=== PATIENT | female | born 1945 | race Caucasian/White ===

== ENCOUNTER 2018-01-20 16:12 | Inpatient (IN) | payer MEDICARE, MEDICAID ==
[2018-01-20] MEDS ORDERED: NS 0.9% 1000 ML* 1,000 ML IV ONE (16:27)
[2018-01-20] MEDS ORDERED: Levofloxacin 750 MG IVPREMIX(* 750 MG/150 ML BAG IVPB ONE (16:27)
[2018-01-20] MEDS ORDERED: Albuterol/Ipratropium NEB.SOL* Albuterol 2.5 MG/Ipratropium 0.5 MG 3 ML INH ONE ×2 (16:29→18:22)
[2018-01-20] MEDS ORDERED: methylPREDNISolone 125 MG* 2 ML VIAL IV ONE (16:29)
--- NOTE | 2018-01-20 16:50 | ED ---
Respiratory - HPI Summary HPI Summary: A 72 y/o female accompanied by her brought in by ambulance presents to the ED c/o SOB. In the ED room, the patient has a pulse of 96 BPM, O2 saturation of 92% and blood pressure of 145/62. As per triage, "Pt with exac of COPD, recently treated for bronchitis. Today became more dyspneic, reports O2 tank changed by family member 2 days ago but does not believe tank was turned on. Pt responded quickly to nasal O2". According to the patient, a family member (niece) changed her O2 tank today, but did not turn it on. As per nurse, the patient had O2 saturation of 40% before, however, she bounced back up to normal with O2. The patient noted that she felt there was O2 flow. She stated that she was diagnosed with bronchitis more than a month ago, however, she thinks she was without O2 more than a few days but she is not sure. Additional symptoms include fatigue, feeling up/down, cold and weakness. The patient was not given antibiotics for her bronchitis. The patient does have an inhaler which she uses everyday. She is also on O2 every day and use two per day. t was noted that the patient does know how to turn on the O2 tank. SHx of non-smoker for the past 2 years. The patient's stated that she has had no issues lately with him, although since he was out in the [facility], she could have been trouble this morning. She was bringing up a lot of flem. - History of Current Complaint Chief Complaint: EDRespiratoryDistress Stated Complaint: DIFF BREATHING Time Seen by Provider: 01/20/18 16:15 Hx Obtained From: Patient Onset/Duration: Sudden Onset, Lasting Days, Still Present Timing: Constant Current Severity: None Pain Intensity: 0 Character: Cough (Productive), Dyspnea at Rest Sputum Amount: Large Aggravating Factor(s): Nothing Alleviating Factor(s): Oxygen Associated Signs and Symptoms: SOB, Chills - Allergy/Home Medications Allergies/Adverse Reactions: Allergies Allergy/AdvReac Type Severity Reaction Status Date / Time MS Penicillins [Penicillins] Allergy Unknown Unknown Verified 06/17/12 10:56 Reaction Details PMH/Surg Hx/FS Hx/Imm Hx Endocrine/Hematology History: Denies: Hx Diabetes, Hx Thyroid Disease Cardiovascular History: Denies: Hx Hypertension Respiratory History: Reports: Hx Asthma, Hx Chronic Obstructive Pulmonary Disease (COPD) GI History: Denies: Hx Ulcer Musculoskeletal History: Reports: Hx Arthritis Sensory History: Reports: Hx Contacts or Glasses Denies: Hx Hearing Aid Opthamlomology History: Reports: Hx Contacts or Glasses - Cancer History Cancer Type, Location and Year: HIgh cholesterol - Surgical History Surgery Procedure, Year, and Place: Breast Biopsy about 4 years ago Infectious Disease History: No Infectious Disease History: Denies: Hx Hepatitis, Hx Human Immunodeficiency Virus (HIV), Traveled Outside the [place] in Last 30 Days - Family History Known Family History: Negative: Diabetes - Social History Substance Use Type: Reports: None Hx Tobacco Use: Yes Review of Systems Positive: Chills, Fatigue. Negative: Fever Positive: Shortness Of Breath, Cough Positive: Weakness All Other Systems Reviewed And Are Negative: Yes Physical Exam - Summary Physical Exam Summary: Appearance: Well appearing, the patient appears to be in distress Skin: warm, dry, reflects adequate perfusion Head/face: normal Eyes: EOMI, TODD ENT: mucous membranes moist Neck: supple, non-tender Respiratory: breath sounds are diminished, harsh wet cough, labored breathing Cardiovascular: RRR, pulses symmetrical Abdomen: non-tender, soft Bowel Sounds: present Musculoskeletal: normal, strength/ROM intact Neuro: normal, sensory motor intact, A&Ox3 Triage Information Reviewed: Yes Vital Signs On Initial Exam: Initial Vitals Temp Pulse Resp BP Pulse Ox 98.4 F 108 17 145/62 91 01/20/18 16:14 01/20/18 16:14 01/20/18 16:14 01/20/18 16:14 01/20/18 16:14 Vital Signs Reviewed: Yes Diagnostics - Vital Signs Vital Signs Temp Pulse Resp BP Pulse Ox 01/20/18 16:14 98.4 F 108 17 145/62 91 - Laboratory Result Diagrams: 01/20/18 16:44 01/20/18 16:44 Lab Statement: Any lab studies that have been ordered have been reviewed, and results considered in the medical decision making process. - Radiology CXR Radiology Interpretation Completed By: Radiologist - COPD. ED PHYSICIAN REVIEWED THIS RADIOLOGY REPORT. - EKG 1642 Cardiac Rate: NL - 89 BPM EKG Rhythm: Sinus Rhythm - [address] Segment: Normal Summary of EKG Findings: NORMAL INTERVAL AND AXIS. Disposition - Course Course Of Treatment: Patient with significant shortness of breath, hypoxia/ cyanosis in the home with O2 sats in the 40s to 60s initially. May have had nonfunctioning oxygen generator at home. History of significant COPD. Improved significantly here in her mental status is normalizing. Initial PCO2 in the 80s. Continuing on nasal cannula at 3 L. Quiet breath sounds but improving symptomatically with breathing treatments, IV fluids. IV antibiotic was given as well. The patient will be admitted to the hospitalist service for further. - Differential Dx - Cardiopulmonary Differential Diagnoses - Cardiopulmonary: CAD, CHF, Exacerbation Of COPD, Lower Resp Infection - Diagnoses Provider Diagnoses: COPD exacerbation, Hypercapnic respiratory failure - Physician Notifications Discussed Care Of Patient With: Nieves Flores Time Discussed With Above Provider: 17:51 Instructed by Provider To: Other - ACCEPTS PATIENT FOR ADMISSION - Critical Care Time Critical Care Time: 30-74 min - 30 MINUTES. CCT is EXCLUSIVE of separately billable procedures. Discharge - Sign-Out/Discharge Documenting (check all that apply): Patient Departure - ADMIT, Sign-Out Patient - EYAL Signing out patient TO: Nieevs Flores Receiving patient FROM: Enrico Baird - Discharge Plan Condition: Stable Disposition: ADMITTED TO [facility] - Billing Disposition and Condition Condition: STABLE Disposition: Admitted to [facility] - Attestation Statements Document Initiated by Bonifacio: Yes Documenting Scribe: Elvin Minaya Provider For Whom Thanhe is Documenting (Include Credential): Enrico Baird MD Scribe Attestation: Elvin Quiroz scribed for Enrico Baird MD on 01/20/18 at 1942. Scribe Documentation Reviewed: Yes Provider Attestation: The documentation as recorded by the Elvin hope accurately reflects the service I personally performed and the decisions made by , Enrico Baird MD
[2018-01-20 17:08] LABS: ABS Basophils 0 10^3/ul (0-0.2); ABS Eosinophils 0 10^3/ul (0-0.6); ABS Lymphocytes 0.9 10^3/ul (1.0-4.8); ABS Monocytes 0.7 10^3/ul (0-0.8); ABS Nucleated RBC 0 10^3/ul; Eosinophil % 0.4 % (0-6); Hematocrit 39 % (35-47); Hemoglobin 12.4 g/dl (12.0-16.0); Lymphocyte % 12.2 % (25-47); Mean Corpuscular HGB Conc 32 g/dl (31-36); Mean Corpuscular Hemoglobin 31 pg (27-31); Mean Corpuscular Volume 96 fL (80-97); Mean Platelet Volume 7.2 fL (7.4-10.4); Nucleated Red Blood Cells % 0; Platelet Count 377 10^3/ul (150-450); Red Blood Count 4.04 10^6/ul (4.00-5.40); Red Cell Distribution Width 15 % (10.5-15); White Blood Count 7.7 10^3/ul (3.5-10.8)
[2018-01-20 17:18] LABS: INR 1.07 (0.77-1.02)
[2018-01-20 17:27] LABS: EGFR Non-African American 116.6 (>60)
[2018-01-20] MEDS ORDERED: Acetaminophen TAB* 325 MG PO PRN (18:22)
[2018-01-20] MEDS ORDERED: Albuterol 2.5 MG/3 ML NEB.SOL* (0.083%) INH PRN (18:22)
[2018-01-20] MEDS ORDERED: Iohexol 350* (CONTRAST) 500 ML MDV IV ONE (18:45)
[2018-01-20] MEDS ORDERED: Albuterol/Ipratropium NEB.SOL* Albuterol 2.5 MG/Ipratropium 0.5 MG 3 ML INH SCH (19:00)
[2018-01-20] MEDS: Levofloxacin 750 MG IVPREMIX(* 750 MG/150 ML BAG IVPB SCH (20:45)
[2018-01-20] MEDS: methylPREDNISolone 125 MG* 2 ML VIAL IV SCH (20:49)
[2018-01-20] MEDS: Albuterol/Ipratropium NEB.SOL* Albuterol 2.5 MG/Ipratropium 0.5 MG 3 ML INH SCH ×2 (20:55→23:46)
[2018-01-20] MEDS: Mometasone/Formoter 200/5 MDI INH SCH (20:56)
[2018-01-20] MEDS: Atorvastatin* 20 MG TAB PO SCH (21:12)
[2018-01-20] MEDS: Heparin VIAL(*) 5000 UNITS/ML VIAL (FIVE THOUSAND) SUBCUT SCH (21:13)
--- NOTE | 2018-01-20 23:08 | HP ---
CC: Dr. De Leon * HISTORY AND PHYSICAL: DATE OF ADMISSION: 01/20/18 PRIMARY CARE PROVIDER: Dr. Azul De Leon. MY ATTENDING PHYSICIAN WHILE IN THE HOSPITAL: Dr. Nieves Flores * (report dictated by Tej Rivera NP) CHIEF COMPLAINT: 1. Cough. 2. Shortness of breath. 3. Syncope. HISTORY OF PRESENT ILLNESS: Ms. Silva is a 72-year-old female patient with a significant history of depression; COPD, on 2 L chronically; hyperlipidemia; history of stroke in the past; history of tobacco abuse, who comes into our ER today stating that last 2 days, she has had progressively worsening cough, shortness of breath. She has had increased sputum production, in addition to this change in her sputum characteristics in a sense that that it has turned to a greenish-type thick sputum. She has noticed that she is progressively becoming more short of breath, particularly with minimal exertion; however, today she was sitting down, she was in her room and the next thing she knew, she woke up and she had a large amount of green sputum and mucus in her hand. She also was incontinent of bowel and bladder. She denies any recent fevers. She does admit to having chills intermittently. When she came to, she did not know where she was, but she knew that her niece was helping her and she knew that her niece had called 911. She does not know how long she was out for. She does not report any abdominal pain. There has been no chest pain prior to or after. She just felt lightheaded. It was noted that when EMS responded there, her oxygen level was 40% and there was question whether or not her O2 was being delivered appropriately, the tank may have been shut off unbeknownst to her. The patient came into the ED. It was noted that she appeared to be hypoxic, she was noted to have decreased breath sounds. There was concern for COPD exacerbation. She was hypoxic here. She was initially tachycardic and she also was initially tachypneic. Because of these findings, we were asked to evaluate for admission. PAST MEDICAL HISTORY: Significant for: 1. Depression. 2. COPD, chronically on 2 L. 3. Hyperlipidemia. 4. Tobacco abuse. 5. CVA. PAST SURGICAL HISTORY: She sounds like she has had a laparotomy. She is unsure if she had it and why that was done. MEDICATIONS: Home meds include, this was according to Kevin. We will need to confirm this with her PCP tomorrow. 1. Zocor 40 mg at bedtime. 2. DuoNeb 3 cc inhaled four times a day. 3. Combivent 1 puff inhaled b.i.d. as needed. 4. Oxybutynin 10 mg p.o. daily. 5. Prilosec 20 mg p.o. daily. 6. Aspirin 81 mg daily. 7. Zoloft 75 mg daily. ALLERGIES TO MEDICATIONS: Include PENICILLIN and CECLOR. FAMILY HISTORY: Her mother had a history of stomach cancer. Father had a history of colon cancer. SOCIAL HISTORY: She was a pack-a-day smoker since the age of 12, she quit about 3 years ago. Does not drink alcohol. Surrogate decision maker is her . REVIEW OF SYSTEMS: There is no documented fever. She denies having any significant weight change. There is no double vision. She denies having any ear discharge. There was no rhinorrhea, no sore throat, no thyroid enlargement. She denies having any chest pain. There is shortness of breath with exertion, but no orthopnea, no nocturnal dyspnea. No abdominal pain. There was no nausea, there is no vomiting. No dysuria, no frequency. There was loss of consciousness, question of seizure. No pruritus. Review of 14 systems was completed, all others negative. PHYSICAL EXAMINATION GENERAL: At this time, Ms. Silva is a 72-year-old female patient. She does appear to be cachectic. She appears to be chronically ill-appearing. She does not appear to be in any acute distress. VITAL SIGNS: Blood pressure 136/63 with a pulse of 98, respirations 20, O2 sat 90%, temperature 98.4. HEENT: Head: Atraumatic and normocephalic. Eyes: EOMs intact. Sclerae anicteric and not pale. Throat: Oral mucosa appears to be dry. No oropharyngeal erythema. NECK: Supple. LUNGS: Diminished throughout. She did have some wheezing and rhonchi in the right upper lobe. She had equal diaphragmatic expansion. HEART: Sounds S1, S2. Regular rate and rhythm. She had no murmurs, rubs, or gallops. ABDOMEN: Soft, flat, nontender. Bowel sounds were present. EXTREMITIES: Pulses were 2+ throughout. No peripheral edema. Moving all 4 extremities with 5/5 strength. NEUROLOGIC: She is awake, she is alert, she is oriented x3. Tongue midline. Software Engineer were equal. She had no gross focal deficits. SKIN: Grossly intact. DIAGNOSTIC STUDIES/LAB DATA: WBC 7.7, RBC of 4.04, hemoglobin 12.4, hematocrit of 39, platelet count 377. INR 1.07. Blood gas: pH 7.38, PCO2 86, PO2 54, bicarb of 41. Sodium was 141, potassium 4.0, chloride of 93, bicarb 47 , BUN 11, creatinine of 0.52, glucose 100, lactate 0.8, calcium 9.7. Total bili 0.4, AST 14, ALT 10, alk phos 101. Troponin 0.03. CRP 167. BNP of 99. Albumin of 3.4. She did have a chest x-ray obtained today, impression: COPD. She did have an EKG obtained today showing a normal sinus rhythm, J-point elevation in V2, V3. She had no ST elevations or T-wave inversions. Reviewed it to the previous EKG, the J-point elevation is new. Last EKG was over 5 years ago. She had diffuse T-wave flattening with the previous EKGs. Old medical records were reviewed. ASSESSMENT AND PLAN: Ms. Silva is a 72-year-old female patient coming into the ED today with complaints of shortness of breath, cough, possible syncope. We were asked to evaluate for admission. She will be admitted under inpatient status for: 1. Chronic obstructive pulmonary disease exacerbation. At this point, again the patient is noted to be hypoxic, she is also noted to be mildly tachypneic. She is requiring a fair amount of O2. I will go ahead and place her in the ICU under Vapotherm. I will place her on nebs every 4 hours p.r.n. albuterol. I will also order Solu-Medrol 60 q.8. I have ordered Levaquin. We will check legionella antigen, Strep pneumo antigen. Sputum cultures will be sent. We will order MetaNeb as well to allow for aggressive pulmonary toileting. I will place her in the ICU and continue to follow. Because of the hypoxia, I will certainly go ahead and check a CTA of the chest just to rule out pulmonary embolism and because of a syncopal episode and we will continue to follow. 2. Syncope. I suspect this is probably secondary to hypoxia. She may have had a seizure related to hypoxia, but she did not have a real prolonged postictal phase, but I do think that I will get an EEG. I have ordered a CT of the brain as well for the syncope and possible seizure and we will continue to follow her. She will be placed on telemetry. I will cycle her troponins. 3. Depression. Continue with supportive care. 4. History of cerebrovascular accident. Continue with secondary prevention. 5. Hyperlipidemia. Continue with statin therapy. 6. DVT prophylaxis. She will be placed on heparin subcu. 7. Code status. She wished to be a DNR/DNI. MOLST form has been filled out. 8. Fluids, electrolytes, and nutrition. She can have a regular diet. TIME SPENT: On admission was 60 minutes, greater than half of the time was spent [id number] with the patient obtaining my history and physical, other half of the time was spent going over the plan of care with the patient and implementing plan of care. I did discuss the plan of care with my attending, Dr. Flores; she is in agreement. TEJ RIVERA NP [id number]/[facility] #: [id number] GENE
[2018-01-21] MEDS: Albuterol/Ipratropium NEB.SOL* Albuterol 2.5 MG/Ipratropium 0.5 MG 3 ML INH SCH ×2 (00:51→08:46)
[2018-01-21] MEDS: methylPREDNISolone 125 MG* 2 ML VIAL IV SCH ×3 (04:33→20:14)
[2018-01-21] MEDS: Heparin VIAL(*) 5000 UNITS/ML VIAL (FIVE THOUSAND) SUBCUT SCH ×3 (05:15→20:14)
[2018-01-21 05:33] LABS: INR 1.08 (0.77-1.02)
[2018-01-21 05:34] LABS: ABS Basophils 0 10^3/ul (0-0.2); ABS Eosinophils 0 10^3/ul (0-0.6); ABS Lymphocytes 0.4 10^3/ul (1.0-4.8); ABS Monocytes 0.1 10^3/ul (0-0.8); ABS Neutrophils 5.9 10^3/ul (1.5-7.7); ABS Nucleated RBC 0 10^3/ul; Eosinophil % 0 % (0-6); Hematocrit 36 % (35-47); Hemoglobin 11.5 g/dl (12.0-16.0); Lymphocyte % 6.3 % (25-47); Mean Corpuscular HGB Conc 32 g/dl (31-36); Mean Corpuscular Hemoglobin 31 pg (27-31); Mean Corpuscular Volume 96 fL (80-97); Mean Platelet Volume 7.2 fL (7.4-10.4); Nucleated Red Blood Cells % 0.1; Platelet Count 353 10^3/ul (150-450); Red Blood Count 3.72 10^6/ul (4.00-5.40); Red Cell Distribution Width 14 % (10.5-15); White Blood Count 6.5 10^3/ul (3.5-10.8)
[2018-01-21 05:41] LABS: EGFR Non-African American 127.9 (>60)
--- NOTE | 2018-01-21 07:35 | PN ---
Subjective Date of Service: 01/21/18 Interval History: Ms. Silva reports that she is feeling better today but that she is not back to her baseline. She denies chest pain but is short of breath with exertion. She denies nausea or abdominal pain. Objective Active Medications: Acetaminophen (Tylenol Tab*) 650 mg PO Q4H PRN Albuterol (Ventolin 2.5 Mg/3 Ml Neb.Mecca*) 2.5 mg INH Q2H PRN Albuterol/Ipratropium (Duoneb (Albuterol 2.5 Mg/Ipratropium 0.5 Mg)) 1 neb INH RT.[id number] AWAKE JOSE Aspirin (Aspirin Ec Tab*) 81 mg PO DAILY JOSE Atorvastatin Calcium (Lipitor*) 20 mg PO BEDTIME JOSE Heparin Sodium (Porcine) (Heparin Vial(*)) 5,000 units SUBCUT Q8HR JOSE Levofloxacin/Dextrose (Levaquin 750 Mg Ivpremix(*)) 750 mg in 150 mls @ 100 mls /hr IVPB Q24H JOSE Methylprednisolone Sodium Succinate (Solu-Medrol 125mg *) 60 mg IV Q8H JOSE Mometasone Furoate/Formoterol Fumar (Dulera 200/5 Mdi*) 2 puff INH BID JOSE Omeprazole (Prilosec Cap*) 20 mg PO DAILY JOSE Oxybutynin Chloride (Ditropan Tab*) 10 mg PO DAILY JOSE Sertraline HCl (Zoloft*) 75 mg PO DAILY [facility] Vital Signs: Temp Pulse Resp BP Pulse Ox 98.2 F 79 24 120/49 96 01/21/18 04:00 01/21/18 06:01 01/21/18 06:01 01/21/18 06:01 01/21/18 06:01 Oxygen Devices in Use Now: Nasal Cannula Appearance: Female lying in bed in NAD Eyes: No Scleral Icterus Ears/Nose/Mouth/Throat: Mucous Membranes Moist Neck: Trachea Midline Respiratory: Symmetrical Chest Expansion and Respiratory Effort, Clear to Auscultation, - - Diminished throughout Cardiovascular: NL Sounds; No Murmurs; No JVD, No Edema Abdominal: NL Sounds; No Tenderness; No Distention Extremities: No Edema Skin: No Rash or Ulcers Neurological: Alert and Oriented x 3, NL Muscle Strength and Tone Result Diagrams: 01/21/18 05:10 01/21/18 05:10 Assess/Plan/Problems-Billing Assessment: Ms. Silva is a 72 yo F with a PMH of COPD with chronic hypoxic respiratory failure on 2L NC at home who was admitted on 01/20/18 with a COPD exacerbation and acute on chronic hypoxemic respiratory failure. - Patient Problems (1) Acute on chronic respiratory failure with hypoxemia Comment: - Now on 5l NC, improving slowly - Continue tx for pna and COPD exacerbation. (2) Pneumonia Comment: - CT chest with ill-defined opacities consistent with pneumonia. - Continue levaquin, tx for COPD exacerbation as per above. (3) COPD exacerbation Comment: - Continue solumedrol, duonebs. (4) Hyperlipidemia Comment: - Continue atorvastatin. (5) Depression Comment: - Continue sertraline. (6) DVT prophylaxis Comment: - Heparin Sq. (7) DNR (do not resuscitate) Comment: Status and Disposition: Inpatient with critical illness, improving slowly. Transfer from ICU to medical floor. Anticipate discharge to home when medically stable.
[2018-01-21] MEDS: Aspirin EC TAB* 81 MG TAB.EC PO SCH (08:21)
[2018-01-21] MEDS: Omeprazole CAP* 20 MG PO SCH (08:21)
[2018-01-21] MEDS: Sertraline* 25 MG TAB PO SCH (08:21)
[2018-01-21] MEDS: Oxybutynin TAB* 5 MG PO SCH (08:22)
[2018-01-21] MEDS: Mometasone/Formoter 200/5 MDI INH SCH ×2 (08:49→20:31)
--- NOTE | 2018-01-21 10:04 | ECHO ---
Patient: RUDDY VIVEROS [facility] Rec#: [id number] : 1945 Date: 01/21/2018 Age: 72y Height: 160 cm / 63.0 in Weight: 64 kg / 141.1 lbs Sex: F BSA: 1.67 Room#: ICU 1 Admit Date#: 01/20/2018 Type: Inpatient Referring: Tej Rivera NP Reading: Cyndi Hightower MD Concrete Boom Operator: Geovanna Marin RDCS,RDMS CC: Azul De Leon MD Transthoracic Echocardiogram Indication: Syncope BP: 120/49 HR: 78 Rhythm: NSR Findings History: COPD, anasarca, cor pulmonale, CVA, HLD. Technical Comments: The study quality is fair. The study is technically limited due to the patient's history of COPD. Left Ventricle: The left ventricular chamber size is normal. Mild concentric left ventricular hypertrophy is observed. Global left ventricular wall motion and contractility are within normal limits. The estimated ejection fraction is 60-65%. There is no consistent Doppler evidence of clinically significant diastolic dysfunction. Left Atrium: The left atrial chamber size is normal. Right Ventricle: The right ventricular chamber size and systolic function are within normal limits. The right ventricle wall thickness is mildly increased. Right Atrium: The right atrial cavity size is normal. Aortic Valve: The aortic valve structure is not well visualized. The aortic valve leaflets are mildly thickened. There is no evidence of aortic regurgitation. There is no evidence of aortic stenosis. Mitral Valve: There is mitral annular calcification. The mitral valve leaflets are mildly thickened. Mitral valve leaflet mobility appears normal. There is a trace of mitral regurgitation. There is no evidence of mitral stenosis. Tricuspid Valve: The tricuspid valve leaflets are normal. There is no evidence of tricuspid valve regurgitation. Pulmonic Valve: The pulmonic valve structure is not well visualized. There is no evidence of pulmonic regurgitation. Pericardium: There is no significant pericardial effusion. Aorta: The ascending aorta is not well visualized. The aortic arch is not well visualized. The aortic root is normal in size. Pulmonary Artery: The main pulmonary artery is not well visualized. Venous: The inferior vena cava appears normal in size. There is an approximate 50% respiratory change in the inferior vena cava dimension. Conclusions The study quality is fair. Mild concentric left ventricular hypertrophy is observed. Global left ventricular wall motion and contractility are within normal limits. The estimated ejection fraction is 60-65%. The right ventricle wall thickness is mildly increased. The right ventricular chamber size and systolic function are within normal limits. The aortic valve leaflets are mildly thickened with normal function. There is mitral annular calcification and trace of mitral regurgitation. Compared with prior echo report of 02/03/13, LVH is new, no longer see septal flattening of the ventricals, LVEF is stable, RV no longer dilated, RVH new, RV systolic function previously mildly reduced. MV function is unchanged. Resolution of prior mil.d/moderate TR. Unable to compare PA pressure, previously 64 mmHg. Measurements Name Value Normal Range RVIDd (AP) 2D 1.7 cm (0.9 - 2.6) RAd ISD 4CH 4.1 cm (3.4 - 4.9) RA (A4C)W 3.5 cm (2.9 - 4.6) IVSd (2D) 1 cm (0.6 - 1) LVPWd (2D) 1.1 cm (0.6 - 1) LVIDd (2D) 4 cm (3.6 - 5.4) LVIDs (2D) 2.6 cm - LV FS (2D) 36 % (25 - 45) Aortic Annulus 2.1 cm (1.4 - 2.6) Ao root diameter (2D) 2.3 cm (2.1 - 3.5) LA dimension (AP) 2D 3.2 cm (2.3 - 3.8) LAd ISD 4CH 4.6 cm (2.9 - 5.3) LA ISD 4CH W 3.9 cm (2.5 - 4.5) Name Value Normal Range LA ESV BP (A/L) index 19 ml/m2 - Name Value Normal Range MV E-wave Vmax 0.9 m/sec - MV deceleration time 148 msec - MV A-wave Vmax 1.2 m/sec - MV E:A ratio 0.8 ratio - LV septal e' Vmax 0.07 m/sec - LV lateral e' Vmax 0.08 m/sec - LV E:e' septal ratio 14.5 ratio - LV E:e' lateral ratio 12 ratio - Name Value Normal Range AV Vmax 1.5 m/sec - AV VTI 30 cm - AV peak gradient 9 mmHg - AV mean gradient 4 mmHg - LVOT Vmax 0.9 m/sec - LVOT VTI 17 cm - LVOT peak gradient 3.2 mmHg - LVOT mean gradient 1 mmHg - Name Value Normal Range MV Vmax 1.2 m/sec - MV VTI 33 cm - MV peak gradient 6 mmHg - MV mean gradient 3 mmHg - MV PHT 99 msec - MVA (PHT) 2.2 cm2 - Name Value Normal Range RAP 8 mmHg - IVC diameter 1.9 cm - Name Value Normal Range PV Vmax 0.8 m/sec - PV peak gradient 2.6 mmHg -
[2018-01-21] MEDS: Atorvastatin* 20 MG TAB PO SCH (20:14)
[2018-01-21] MEDS: Levofloxacin 750 MG IVPREMIX(* 750 MG/150 ML BAG IVPB SCH (20:15)
[2018-01-22] MEDS: methylPREDNISolone 125 MG* 2 ML VIAL IV SCH ×3 (03:30→17:19)
[2018-01-22] MEDS: Heparin VIAL(*) 5000 UNITS/ML VIAL (FIVE THOUSAND) SUBCUT SCH ×2 (05:36→13:05)
--- NOTE | 2018-01-22 06:26 | EEG ---
ELECTROENCEPHALOGRAPHY: DATE OF STUDY: 01/21/18 LOCATION: She is an inpatient in room 418. REFERRING PROVIDER: Tej Rivera NP CLINICAL PROBLEM: Episode of loss of consciousness and the patient was subsequently found to be hypo xic. There is a history of COPD. MEDICATIONS: Include: 1. Levaquin. 2. Solu-Medrol. 3. Sertraline. REPORT: This 16-channel EEG is remarkable for background rhythms consisting of bitemporalis muscle a rtifact. Central and bitemporal activity is noted and is roughly in the 6 to 7 cycles per second ran ge. There are some central and bifrontal beta rhythms as well. There is intermittent eye movement a rtifact. There is intermittent blink artifact. There is chewing artifact as well. Portions of the t racing are quite readable, however. The patient does not appear to drowse or sleep during the record ing. Activation procedures are not attempted. There are no clinical events described. CLINICAL IMPRESSION: Abnormal EEG due to mild slowing of background rhythm consistent with diffuse c erebral dysfunction. There are no focal or epileptiform features to this recording. [id number]/[facility] #: [id number]
--- NOTE | 2018-01-22 08:13 | PN ---
Subjective Date of Service: 01/22/18 Interval History: Ms. Silva reports feeling much better today. She has been up ambulating and now requiring 3L NC to maintain an SpO2 > 92%. She denies chest pain, nausea, or abdominal pain and is tolerating oral intake well. Objective Active Medications: Acetaminophen (Tylenol Tab*) 650 mg PO Q4H PRN Albuterol (Ventolin 2.5 Mg/3 Ml Neb.Mecca*) 2.5 mg INH Q2H PRN Aspirin (Aspirin Ec Tab*) 81 mg PO DAILY JOSE Atorvastatin Calcium (Lipitor*) 20 mg PO BEDTIME JOSE Heparin Sodium (Porcine) (Heparin Vial(*)) 5,000 units SUBCUT Q8HR JOSE Levofloxacin/Dextrose (Levaquin 750 Mg Ivpremix(*)) 750 mg in 150 mls @ 100 mls /hr IVPB Q24H JOSE Methylprednisolone Sodium Succinate (Solu-Medrol 125mg *) 60 mg IV Q8H JOSE Mometasone Furoate/Formoterol Fumar (Dulera 200/5 Mdi*) 2 puff INH BID JOSE Omeprazole (Prilosec Cap*) 20 mg PO DAILY JOSE Oxybutynin Chloride (Ditropan Tab*) 10 mg PO DAILY JOSE Sertraline HCl (Zoloft*) 75 mg PO DAILY [facility] Oxygen Devices in Use Now: Nasal Cannula Appearance: Female sitting up in bed in NAD Eyes: No Scleral Icterus Ears/Nose/Mouth/Throat: Mucous Membranes Moist Neck: Trachea Midline Respiratory: Symmetrical Chest Expansion and Respiratory Effort, Clear to Auscultation, - - Diminished Cardiovascular: NL Sounds; No Murmurs; No JVD, No Edema Abdominal: NL Sounds; No Tenderness; No Distention Extremities: No Edema Skin: No Rash or Ulcers Neurological: Alert and Oriented x 3, NL Muscle Strength and Tone Nutrition: Taking PO's Result Diagrams: 01/21/18 05:10 01/21/18 05:10 Assess/Plan/Problems-Billing Assessment: Ms. Silva is a 72 yo F with a PMH of COPD with chronic hypoxic respiratory failure on 2L NC at home who was admitted on 01/20/18 with a COPD exacerbation and acute on chronic hypoxemic respiratory failure. - Patient Problems (1) Acute on chronic respiratory failure with hypoxemia Comment: - Now down to 3l NC with ambulation, 2L at rest - Continue tx for pna and COPD exacerbation. (2) Pneumonia Comment: - CT chest with ill-defined opacities consistent with pneumonia. - Continue levaquin po, tx for COPD exacerbation as per above. (3) COPD exacerbation Comment: - Start prednisone taper. (4) Hyperlipidemia Comment: - Continue atorvastatin. (5) Depression Comment: - Continue sertraline. (6) DVT prophylaxis Comment: - Heparin Sq. (7) DNR (do not resuscitate) Comment: Status and Disposition: Inpatient, discharge to home.
[2018-01-22] MEDS: Oxybutynin TAB* 5 MG PO SCH (08:17)
[2018-01-22] MEDS: Aspirin EC TAB* 81 MG TAB.EC PO SCH (08:17)
[2018-01-22] MEDS: Sertraline* 25 MG TAB PO SCH (08:17)
[2018-01-22] MEDS: Omeprazole CAP* 20 MG PO SCH (08:17)
[2018-01-22] MEDS: Mometasone/Formoter 200/5 MDI INH SCH (08:23)
[2018-01-22 15:16] VITALS: BP 110/45
--- NOTE | 2018-01-22 21:32 | DS ---
CC: Dr. Olvera* [facility] MEDICINE DISCHARGE SUMMARY: DATE OF ADMISSION: 01/20/18 DATE OF DISCHARGE: 01/22/18 PRIMARY CARE PHYSICIAN: Dr. Olvera. ATTENDING PHYSICIAN: Dr. Ever Gallardo* (dictation provided by Melanie Razo NP). PRIMARY DIAGNOSES: 1. Acute on chronic respiratory failure with hypoxemia. 2. Pneumonia. 3. Chronic obstructive pulmonary disease exacerbation. SECONDARY DIAGNOSES: 1. Hyperlipidemia. 2. Depression. 3. Chronic obstructive pulmonary disease, chronically on 2 L nasal cannula. 4. Tobacco abuse. 5. History of cerebrovascular accident. MEDICATIONS AT THE TIME OF DISCHARGE: 1. Simvastatin 40 mg p.o. at bedtime. 2. Ipratropium nebulizer 3 mL inhaled four times a day. 3. Combivent inhaler 1 puff inhaled b.i.d. p.r.n. 4. Oxybutynin 10 mg p.o. daily. 5. Omeprazole 20 mg p.o. daily. 6. Aspirin 81 mg p.o. daily. 7. Sertraline 75 mg p.o. daily. 8. Prednisone 40 mg to taper. 9. Levaquin 750 mg p.o. daily x5 days. HOSPITAL COURSE: Ms. Silva is a 72-year-old female, who presented to the emergency room on 01/20/18 with concern for shortness of breath. Please see the dictated H and P from Tej Rivera NP, for complete details. In brief, the patient has a history of COPD, presented to the emergency room with worsening cough and shortness of breath. She reported increased sputum production and that sputum had changed to a greenish thick sputum. In the emergency room, she was initially confused, but became more oriented during her time there. There were some concerns that perhaps her oxygen was not functioning properly at home per EMS. In the emergency room, she had no leukocytosis. Her pH 7.38, PCO2 86, PO2 of 54. She had CRP 167.53. She is afebrile. She went on for a chest CTA, which showed no pulmonary embolism. It did show ill-defined multilobar lung opacities likely representing pneumonia, less pronounced in the right upper lobe with reactive hilar and mediastinal lymph nodes. There is also 4-mm left lower lobe nodule, possibly related to underlying airspace disease, but other etiologies could not be excluded and there is a recommended followup CT in 1 year. Ms. Silva is admitted to the hospital. She was treated with Levaquin and Solu- Medrol for her pneumonia and COPD exacerbation. By the following day, she was doing better, but continued to require 5 L of oxygen at rest. Today, Ms. Silva is doing much better. She is on 2 L nasal cannula, which is her home O2 at rest and is only meeting 3 L with mobility. She states she is feeling much better. Her lungs are much clear. Her vitals are stable and her labs have remained stable. Ms. Silva is medically stable for discharge to home. She will be continuing to complete a course of prednisone and Levaquin in treatment of COPD and pneumonia and she has been recommended closely to follow up with Dr. Olvera. DISPOSITION: To home. DIET: Regular. ACTIVITIES: As tolerated. FOLLOWUP PLANS: 1. Please follow up with Dr. Olvera in the next week regarding this hospitalization. 2. Please follow up with Dr. Olvera for repeat CT to evaluate abnormalities noted here have cleared. TIME SPENT: Approximately 60 minutes was spent on the discharge of this patient , more than half the time was spent with her at the bedside reviewing the events leading up to this hospitalization, performing the physical examination, and reviewing my plan of care. MELANIE RAZO NP [id number]/[facility] #: [id number] GENE
[2018-01-23] MEDS: Mometasone/Formoter 200/5 MDI INH SCH (06:48)
== END 2018-01-23 07:23 | disposition home health service (06) | DRG 193 ==
LOC: ED 16:12 → ICU 18:18 → MED 01-21 11:31
PROVIDERS: ADMIT Internal Medicine; ATTEND Student in an Organized Health Care Education/Training Program
PROC: 4A00X4Z Measurement of Central Nervous Electrical Activity, External Approach (ICD-10-PCS; principal; 2018-01-21)
DX: J18.9 Pneumonia, unspecified organism (principal); J96.21 Acute and chronic respiratory failure with hypoxia; J44.1 Chronic obstructive pulmonary disease with (acute) exacerbation; J44.0 Chronic obstructive pulmonary disease with (acute) lower respiratory infection; R64 Cachexia; Z68.1 Body mass index [BMI] 19.9 or less, adult; F32.9 Major depressive disorder, single episode, unspecified; Z66 Do not resuscitate; F17.210 Nicotine dependence, cigarettes, uncomplicated; M19.90 Unspecified osteoarthritis, unspecified site; R91.1 Solitary pulmonary nodule; E78.5 Hyperlipidemia, unspecified; Z86.73 Personal history of transient ischemic attack (TIA), and cerebral infarction without residual deficits; Z99.81 Dependence on supplemental oxygen; Z88.0 Allergy status to penicillin; Z88.8 Allergy status to other drugs, medicaments and biological substances; Z80.0 Family history of malignant neoplasm of digestive organs; Z79.82 Long term (current) use of aspirin; Z79.52 Long term (current) use of systemic steroids
CPT/HCPCS: 36415; 70450; 71045; 71275; 80048; 80053; 82803; 83605; 83880; 84484; 85025; 85610; 86140; 87040; 87070; 87077; 87205; 87641; 87899; 93005; 93306; 94640; 94668; 95816; 99283; A9270-GY; J1644; J2930; Q9967

== ENCOUNTER 2018-02-15 00:06 | Inpatient (IN) | payer MEDICARE, MEDICAID ==
[2018-02-15] MEDS ORDERED: NS 0.9% 1000 ML*IV.FLUID IV ONE (00:12)
[2018-02-15] MEDS ORDERED: Levofloxacin 750 MG IVPREMIX(* 750 MG/150 ML BAG IVPB ONE (00:15)
[2018-02-15] MEDS ORDERED: Aztreonam (*) 2 GM in NS 0.9% 50 ML* 50 ML IVPB ONE (00:15)
[2018-02-15] MEDS ORDERED: methylPREDNISolone 125 MG* 2 ML VIAL IV ONE (00:15)
[2018-02-15] MEDS ORDERED: Albuterol 0.5% CONC NEB.SOL* 5 MG/ML 20 ml BOT ONE (00:19)
--- NOTE | 2018-02-15 00:22 | ED ---
Shortness of Breath - HPI Summary HPI Summary: The patient is a 72 y/o F [facility] in by ambulance with a chief complaint of SOB and respiratory distress for the last few weeks. She additionally c/o nausea, vomiting, and abd pain, which is why she came to the ED. EMS gave her a duoneb which helped her respiratory rate. - History of Current Complaint Time Seen by Provider: 02/15/18 00:09 Hx Obtained From: Patient, EMS Onset/Duration: Lasting Weeks - since last month, Still Present Timing: Constant Current Severity: Severe Aggrevating Factors: Nothing Alleviating Factors: Other - duoneb by EMS - Allergy/Home Medications Allergies/Adverse Reactions: Allergies Allergy/AdvReac Type Severity Reaction Status Date / Time Penicillins Allergy Unknown Unknown Verified 01/20/18 21:06 Reaction Details PMH/Surg Hx/FS Hx/Imm Hx Endocrine/Hematology History: Denies: Hx Diabetes, Hx Thyroid Disease Cardiovascular History: Reports: Hx Hypercholesterolemia Denies: Hx Hypertension Respiratory History: Reports: Hx Asthma, Hx Chronic Bronchitis, Hx Chronic Obstructive Pulmonary Disease (COPD) GI History: Denies: Hx Ulcer Musculoskeletal History: Reports: Hx Arthritis Sensory History: Reports: Hx Contacts or Glasses - left at home Denies: Hx Hearing Aid Opthamlomology History: Reports: Hx Contacts or Glasses - left at home - Cancer History Cancer Type, Location and Year: HIgh cholesterol - Surgical History Surgery Procedure, Year, and Place: Breast Biopsy about 4 years ago Infectious Disease History: Denies: Hx Hepatitis, Hx Human Immunodeficiency Virus (HIV) - Family History Known Family History: Negative: Diabetes - Social History Alcohol Use: None Substance Use Type: Reports: None Hx Tobacco Use: Yes Smoking Status (MU): Former Smoker Review of Systems Positive: Shortness Of Breath Positive: Abdominal Pain, Vomiting, Nausea All Other Systems Reviewed And Are Negative: Yes Physical Exam - Summary Physical Exam Summary: Appearance: Elderly woman who appears acutely ill, lying in bed comfortably Skin: Warm, dry, no obvious rash Eyes: sclera anicteric, no conjunctival pallor ENT: mucous membranes moist, pharynx appears normal Neck: Supple, nontender Respiratory: diffuse rhonchi and wheezes in all lung richardson, moderate signs of respiratory distress Cardiovascular: Normal S1, S2. Tachycardic. Borderline low BP. No murmurs. Normal distal pulses in tibial and radial bilaterally. Abdomen: Soft, nontender, normal active bowel sounds present Musculoskeletal: Normal, Strength/ROM Intact Neurological: A&Ox3, awake and alert, mentation is normal, speech is fluent and appropriate Psychiatric: affect is normal, does not appear anxious or depressed Triage Information Reviewed: Yes Vital Signs Reviewed: Yes Diagnostics - Laboratory Result Diagrams: 02/15/18 00:19 02/15/18 03:11 Lab Statement: Any lab studies that have been ordered have been reviewed, and results considered in the medical decision making process. - Radiology CXR Radiology Interpretation Completed By: Radiologist Summary of Radiographic Findings: Extensive right white infiltrate worse than prior CXR. ED physician has reviewed this report. - EKG 00:15 Cardiac Rate: Tachycardia EKG Rhythm: SVT Summary of EKG Findings: Supraventricular tachycardia. Re-Evaluation - Re-Evaluation First Eval Re-Evaluation Time: 01:20 Change: Improved - The patient appears somewhat improved. Her work of breathing has declined. Her heart rate is still quite elevated, we will continue her IV fluid bolus. I have also ordered broad-spectrum IV antibiotics and will add thank him ice and to that given the markedly worsening appearance of her chest x-ray. I did verify with the patient that she does not want to be on life support, so should not be intubated or have CPR done. Course/Dx - Course Course Of Treatment: The patient is a 72 y/o F brought in by ambulance with a chief complaint of SOB and respiratory distress for the last few weeks. She additionally c/o nausea, vomiting, and abd pain. EMS gave her a duoneb which helped her respiratory rate. Upon physical exam, the patient is an elderly woman who appears acutely ill in moderate respiratory distress with tachycardia and borderline low BP as well as diffuse rhonchi and wheezes in all lung richardson. In the ED course, she was given Ns, Azactam, Albuterol, Levaquin, Prednisone, Solu-Medrol, and Vancomycin. Bloodwork reveals elevated WBCs, immature gran%, neutrophils, BUN/Creatine ratio, and Lactic acid of 4.2. EKG reveals SVT. CXR reveals extensive right white infiltrate worse than prior CXR. Patient is diagnosed with sepsis, pneumonia, and chronic respiratory failure. Sepsis protocol was initiated at 0010. Fluids given at 0013. I consulted with Dr. Rivera, hospitalist, who will admit the patient at 0130. She agrees with this plan and understands the need for admission. - Diagnoses Provider Diagnoses: Sepsis, Pneumonia, Chronic respiratory failure - Physician Notifications Discussed Care of Patient With: Tej Rivera - hospitalist Time Discussed With Above Provider: 01:30 Instructed by Provider To: Admit As Observation Admit/Transition Orders Completed By ED Provider: Yes - Critical Care Time Critical Care Time: 30-74 min - This is an elderly woman presenting in respiratory distress requiring noninvasive ventilation who has a complicated infection in the right lung, perhaps an empyema. She required frequent reassessments and admission to the ICU. Discharge - Sign-Out/Discharge Documenting (check all that apply): Patient Departure - Patient is admitted to [facility] for further care by Dr. Rivera. - Discharge Plan Condition: Fair Disposition: ADMITTED TO [facility] - Billing Disposition and Condition Condition: FAIR Disposition: Admitted to [facility] - Attestation Statements Document Initiated by Bonifacio: Yes Documenting Scribe: Connie Ponce Provider For Whom Bonifacio is Documenting (Include Credential): Dr. John Blas MD Scribe Attestation: Connie Quiroz scribed for Dr. John Blas MD on 02/15/18 at 0652. Scribe Documentation Reviewed: Yes Provider Attestation: The documentation as recorded by the Connie hope accurately reflects the service I personally performed and the decisions made by me, Dr. John Blas MD Status of Scribganga Document: Viewed
[2018-02-15] MEDS ORDERED: Albuterol 0.5% CONC NEB.SOL* 5 MG/ML 20 ml BOT INH ONE (00:30)
[2018-02-15 01:02] LABS: Hematocrit 39 % (35-47); Mean Corpuscular HGB Conc 31 g/dl (31-36); Mean Corpuscular Hemoglobin 31 pg (27-31); Mean Corpuscular Volume 98 fL (80-97); Platelet Count 225 10^3/ul (150-450); Red Blood Count 3.94 10^6/ul (4.00-5.40); Red Cell Distribution Width 15 % (10.5-15); White Blood Count 23.2 10^3/ul (3.5-10.8)
[2018-02-15 01:14] LABS: EGFR Non-African American 56.1 (>60)
[2018-02-15] MEDS ORDERED: Vancomycin(*) 1,000 MG in NS 0.9% 250 ML* 250 ML IVPB ONE (01:22)
[2018-02-15 01:28] LABS: ABS Neutrophils 22.3 10^3/ul (1.5-7.7)
[2018-02-15 01:47] LABS: ABS Basophils 0.1 10^3/ul (0-0.2); ABS Eosinophils 0 10^3/ul (0-0.6); ABS Lymphocytes 0.4 10^3/ul (1.0-4.8); ABS Monocytes 0.9 10^3/ul (0-0.8); ABS Neutrophils 21.8 10^3/ul (1.5-7.7); ABS Nucleated RBC 0 10^3/ul
[2018-02-15] MEDS ORDERED: Albuterol 2.5 MG/3 ML NEB.SOL* (0.083%) INH PRN (01:56)
[2018-02-15] MEDS ORDERED: Ondansetron INJ* 2 MG/ML VIAL IV PRN (01:56)
[2018-02-15] MEDS ORDERED: Acetaminophen TAB* 325 MG PO PRN (01:56)
[2018-02-15] MEDS ORDERED: Vancomycin per Pharmacy* NOTE FOLLOW UP SCH (02:00)
[2018-02-15] MEDS ORDERED: NS 0.9% 1000 ML* 1,000 ML IV SCH (02:00)
[2018-02-15] MEDS ORDERED: NS 0.9% 1000 ML* 1,000 ML IV ONE (02:01)
[2018-02-15] MEDS ORDERED: Iodixanol* (CONTRAST) 320 MG/ML 100 ML SDV IV ONE (02:05)
[2018-02-15] MEDS ORDERED: Morphine INJ* 2 MG/ML 1 ML SYRINGE (TWO MG - NEW SYRINGE VERSION) IV ONE (02:07)
[2018-02-15] MEDS: Albuterol/Ipratropium NEB.SOL* Albuterol 2.5 MG/Ipratropium 0.5 MG 3 ML INH SCH ×6 (02:57→23:34)
[2018-02-15 03:35] LABS: INR 1.19 (0.77-1.02)
[2018-02-15 03:44] LABS: EGFR Non-African American 58.2 (>60)
[2018-02-15] MEDS: Cefepime 2 GM in Dextrose(*) 2 GM/50 ML BAG IV SCH ×2 (03:48→14:14)
[2018-02-15 03:49] LABS: Urine Appearance Cloudy; Urine Blood Negative (Negative); Urine Color Amber; Urine Ketones Negative (Negative); Urine Protein 1+(30 mg/dL) (Negative); Urine Red Blood Cell Trace(0-2/hpf) (Absent); Urine Specific Gravity 1.018 (1.010-1.030); Urine Urobilinogen Positive (Negative); Urine White Blood Cell Trace(0-5/hpf) (Absent)
[2018-02-15] MEDS ORDERED: Morphine VIAL* 4 MG/ML VIAL (1 ml vial) ONE ×2 (04:53→05:12)
[2018-02-15] MEDS: Azithromycin IV(*) 500 MG in NS 0.9% 250 ML* 250 ML IVPB SCH (05:01)
[2018-02-15] MEDS ORDERED: Morphine VIAL* 4 MG/ML VIAL (1 ml vial) IV ONE (05:18)
[2018-02-15] MEDS ORDERED: Morphine VIAL* 4 MG/ML VIAL (1 ml vial) IV PRN (05:19)
[2018-02-15] MEDS ORDERED: LORazepam INJ* 2 MG/ML 1 ML VIAL IV PUSH PRN (05:19)
[2018-02-15] MEDS ORDERED: Hydrocortisone INJ* 100 MG VIAL IV SCH (06:00)
[2018-02-15] MEDS ORDERED: Dexamethasone IV* 4 MG/ML 1 ML (4 MG) IV SLOW PU SCH (06:30)
[2018-02-15] MEDS: Heparin VIAL(*) 5000 UNITS/ML VIAL (FIVE THOUSAND) SUBCUT SCH ×3 (06:31→22:32)
--- NOTE | 2018-02-15 06:36 | HP ---
CC: Dr. Azul De Leon; Dr. Ingram * HISTORY AND PHYSICAL: DATE OF ADMISSION: 02/15/18 PRIMARY CARE PROVIDER: Azul De Leon MD ATTENDING PHYSICIAN WHILE IN THE HOSPITAL: Constanza Parisi MD *(DICTATED BY FAISAL SQUIRES NP) CONSULTING MANAGER CREATIVE SERVICES: Dr. Ingram CHIEF COMPLAINT: Shortness of breath. HISTORY OF PRESENT ILLNESS: Mrs. Silva is a 72-year-old female patient. She carries a history of COPD, recently was here about a month ago for pneumonia, history of depression, tobacco abuse, hyperlipidemia, and a history of a stroke. She comes in today stating that over the last week to 4 days, she has had progressively worsening shortness of breath, not feeling well. She has been having cough that has been, she states, very nasty. She states it has been very dark yellow. She has been having chills, not feeling well. She was encouraged to come to the hospital pretty much every day according to the patient's family member, name is Amalia. She had been telling Elicia to go to the hospital, but анна Holland was over at Elicia's house and helping her get back into bed because she had slid out of bed and when she went to pick her up, she was cold, clammy, sweaty, really breathing fast and she gave Elicia no choice and called 911. Mrs. Silva states that she has been feeling nauseated. She has not really had a good appetite. She has vomited. She had one episode of diarrhea. She denies having arthralgias or any sick contacts, but she was concerned because her breathing just was not getting any better. So, she presented into the ER. She does admit to having chest pain with cough. Denies having any abdominal discomfort. She came into the ED, was evaluated. She was found to have a very significant multilobar pneumonia on the right side and pleural effusion. In addition to this, was found to be in septic shock. So because of this, we were asked to evaluate for admission. PAST MEDICAL HISTORY: Significant for: 1. Depression. 2. COPD, chronically on 2 L. 3. Hyperlipidemia. 4. Tobacco abuse. 5. CVA. 6. Recent hospitalization for pneumonia. PAST SURGICAL HISTORY: She has had a laparotomy, exploratory. MEDICATIONS: Home meds include: 1. Oxybutynin 10 mg daily. 2. Prilosec 20 mg daily. 3. Albuterol 3 cc p.o. q.i.d. 4. Aspirin 81 mg daily. 5. Combivent 1 puffs inhaled b.i.d. 6. Prednisone 10 mg daily. 7. Zocor 40 mg at bedtime. 8. Zoloft 75 mg daily. ALLERGIES TO MEDICATIONS: Include PENICILLIN. FAMILY HISTORY: Her mother had skin cancer, father had colon cancer. SOCIAL HISTORY: She no longer smokes; she states she quit 3 years ago. She does not drink. She states she lives alone. Surrogate decision maker is her niece, Angela. REVIEW OF SYSTEMS: There is again no documented fever, although she subjectively admits to having chills. She denied any significant weight change. She denies having any double vision. There was no ear discharge. She denies having any rhinorrhea. There was no sore throat. No thyroid enlargement. There is shortness of breath. There is orthopnea. There is dyspnea on exertion. There was no abdominal pain. There was 1 episode of nausea and vomiting, one episode of diarrhea. No dysuria, no frequency. There is no seizure, no loss of consciousness. No pruritus and no skin ulcerations. Review of 14 systems completed, all others negative. PHYSICAL EXAMINATION GENERAL: At this time, Mrs. Silva is a 72-year-old female patient. She does appear to be in a mild to moderate amount of acute respiratory distress. She again appears to be cachectic. She is sitting in the ED stretcher. VITAL SIGNS: When she presented, she had a blood pressure of 94/51, pulse of 150, respirations 40, O2 sat was 89% on nonrebreather. She is now 86/40, pulse of 138, respirations being read as 43, but actually on BiPAP, she is breathing between 29 and 30, O2 saturation 96% on 100% FiO2, temperature 97.8. HEENT: Head: Atraumatic, normocephalic. Eyes: EOMs intact. Sclerae anicteric and not pale. Throat: Oral mucosa appears to be dry. No oropharyngeal erythema. NECK: Supple. LUNGS: She was diminished on the right side. Equal diaphragmatic expansion. She is moving minimal air on the right side. HEART: Sounds S1, S2. She was tachycardic. No murmurs or rubs. ABDOMEN: Soft, flat, nontender. Bowel sounds are present. EXTREMITIES: Pulses are 2+ throughout. She had no peripheral edema. NEUROLOGICAL: She is awake. She is alert. She is confused to the year. She knows she is in the hospital. She knows her name. Her speech otherwise is clear. Tongue is midline. No facial drooping. She had no gross focal deficits. SKIN: Intact. DIAGNOSTIC STUDIES/LAB DATA: Her labs today revealed a WBC of 23.2, RBC of 3.94, hemoglobin 12.0, hematocrit of 39, platelet count of 222, her bands were 22% and sodium is 137, potassium 4.3, chloride of 95, bicarb 38, her BUN was 42 , creatinine of 0.98, glucose 140. Lactic 4.2. Calcium 9.8. Total bili 0.8, AST 15, ALT 10, alk phos 108. Troponin 0.01. BNP of 273. Albumin of 3.2. She had a chest x-ray obtained today, which does show significant pleural effusion and almost white out of the right lung. She does have some aeration in the upper lobe, but it looks to be multilobar pneumonia in that right lung. Compared to the previous chest x-ray, this is new. She did have an EKG, which shows a sinus tachycardia at a rate of [address] depression. When you look at the previous EKG, again the tachycardia is definitely now new. She did have a CTA of the chest previously, which showed ill-defined multilobar lung opacities likely representing pneumonia, most pronounced in the right upper lobe. She had COPD, cholelithiasis, 4 mm left lower lobe nodule. She did also have an echo on 01/20/18, impression: EF of 60% to 65%, LVH was noted , but it was mild, global left ventricular wall motion and contractility within normal limits, right ventricle wall thickness mildly increased, RV function was within normal limits, AV valve leaflets are mildly thickened, normal function, trace mitral regurg was noted. Old medical records were reviewed. ASSESSMENT AND PLAN: Mrs. Silva is a 72-year-old female patient coming in to the ER today with complaints of about a week's worth of worsening shortness of breath. On evaluation, was found to be septic and had septic shock. She will be admitted under inpatient status for: 1. Septic shock. Again, her blood pressures, we are still giving her fluids, she has gotten two 30 cc/kg bolus. She has gotten antibiotics. Her blood cultures have been sent. A repeat lactic is pending. I am going to give her another liter. As she did respond to the fluids initially, her blood pressures got up in to the one-teens to low 90s and 100s. She is mentating fairly well considering how ill she is. I do have a low threshold if she does not respond to this next bolus, we will probably add on a pressor. I did touch base with Dr. Ingram. I suspect the source is pulmonary. He is planning on coming in to perform a thoracentesis first thing in the morning. The patient has been started on BiPAP for the respiratory failure that she is exhibiting and at this point, we will get an ABG. I have brought in her antibiotic therapy. We will get sputum culture, legionella antigen, Strep pneumo antigen. Rapid flu will also be checked and we will continue to treat her aggressively. I would like to get a CT of the chest; if I am able to better look at this pleural effusion, but at this point, I think she is too unstable for this. She is a DNR/DNI. She does not want to be intubated. I do have a call with the family should she deteriorate. I did explain to her that the next option if the BiPAP does not slow down her breathing would be to keep her comfortable, which she states she would be open to, but she is interested in chest tube if needed and she is interested in pressors if needed as well, but we will have a call to the patient's healthcare proxy, Angela, to discuss this with her. 2. Chronic obstructive pulmonary disease with exacerbation secondary to pneumonia and acute respiratory failure. Again, she is on BiPAP. I do have her on hydrocortisone 100 q.8 to help with hopefully her blood pressure and also antiinflammatory properties for her lungs. I have ordered Dulera. In addition to this, I have ordered nebs every 4 hours, aggressive pulmonary toileting and we will continue with again BiPAP. 3. Pneumonia, again probably this is the source of her sepsis. We are treating with cefepime, azithromycin, and vanco. We will get sputum culture, legionella antigen and Strep pneumo antigen. 4. Hyperlipidemia. I am going to hold her statin in the acute illness. 5. Depression. Continue supportive care. Restart her Zoloft when able. 6. History of cerebrovascular accident. I will continue her aspirin for the time being. 7. DVT prophylaxis: She will be placed on heparin subcu. 8. Code status: She is a DNR. There is a MOLST form in the computer. 9. Fluids, electrolytes, and nutrition: She is n.p.o. for the time being. TIME SPENT: On the admission which is critical care time was 70 minutes, greater than half the time spent [id number] with the patient obtaining my history and physical; other half time spent going over the plan of care with the patient and implementing plan of care. I did discuss the plan of care with my attending, Dr. Parisi. She also personally saw the patient. Full update to Dr. Ingram and we will continue to follow the patient closely in the ICU. FAISAL SQUIRES NP [id number]/[facility] #: [id number] GENE
[2018-02-15] MEDS ORDERED: Dexamethasone IV* 4 MG in NS 0.9% 50 ML* 50 ML IVPB SCH (07:00)
[2018-02-15] MEDS: Mometasone/Formoter 200/5 MDI INH SCH ×2 (07:14→19:21)
[2018-02-15 07:24] LABS: EGFR Non-African American 80.1 (>60)
[2018-02-15] MEDS ORDERED: Magnesium Sulfate IV* 3 GM in NS 0.9% 100 ML* 100 ML IVPB ONE (09:00)
--- NOTE | 2018-02-15 09:14 | PN ---
Date of Service: 02/15/18 Critical Care Services: 72F with severe copd, depression, smoker, hld, cva, pulm htn presents with respiratory failure 2/2 pneumococcal pna and copd exacerbation. Now on bipap. 02/15: Patient requesting limited intervention. DNR/DNI. Continue abx and steroids for now. Vital Signs: Temp Pulse Resp BP SpO2 FiO2 99.1 F 116 35 92/49 94 80 02/15/18 08:30 02/15/18 08:30 02/15/18 08:30 02/15/18 08:30 02/15/18 08:30 02/15 03:07 Physical Exam: Gen - chronically ill, on bipap heent - ncat, eomi, perrl neck - no thyromegaly cv - s1/s2, tachy pulm - +ronchi R > L, +wheeze abd - soft, nt, nd ext - no cce neuro - non focal Fluid Balance (Past 24 Hours): I= O= Net Intake & Output 02/13/18 02/14/18 02/15/18 02/16/18 06:59 06:59 06:59 06:59 Intake Total 2390 Output Total 140 60 Balance 2250 -60 Weight 49.6 kg Intake: IV Fluids 1750 NS (0.9%) 1750 IVPB 640 ABX - AZITHROMYCIN 260 ABX - AZTREONAM 60 ABX - CEFEPIME 60 ABX - VANCOMYCIN 260 Output: Butts 140 60 Labs: Laboratory Results - last 24 hr 02/15/18 02/15/18 02/15/18 00:19 00:19 00:19 WBC 23.2 H RBC 3.94 L Hgb 12.0 Hct 39 MCV 98 H MCH 31 MCHC 31 RDW 15 Plt Count 225 MPV 8.0 Neut % (Auto) Not Reportable Lymph % (Auto) Not Reportable [place] % (Auto) Not Reportable Eos % (Auto) Not Reportable Baso % (Auto) Not Reportable Absolute Neuts (auto) 21.8 H Absolute Lymphs (auto) 0.4 L Absolute Monos (auto) 0.9 H Absolute Eos (auto) 0 Absolute Basos (auto) 0.1 Absolute Nucleated RBC 0 Immature Gran % 27 H Neutrophils % 69 Band Neutrophils % 22 H Lymphocytes % 4 Metamyelocytes % 3 H Myelocytes % 2 H Nucleated RBC % Not Reportable Abs Neuts (Manual) 22.3 H Abs Lymphs (Manual) 0.9 L Toxic Granulation 2+ Normal RBC Morphology Normal INR (Anticoag Therapy) APTT D-Dimer, Quantitative VBG pH VBG pCO2 VBG pO2 VBG HCO3 VBG O2 Saturation VBG Base Excess Sodium 137 Potassium 4.3 Chloride 90 L Carbon Dioxide 38 H Anion Gap 9 BUN 42 H Creatinine 0.98 H Est GFR ( Amer) 67.9 Est GFR (Non-Af Amer) 56.1 BUN/Creatinine Ratio 42.9 H Glucose 144 H Lactic Acid 4.2 H* Calcium 9.8 Phosphorus Magnesium Total Bilirubin 0.80 AST 15 ALT 10 Alkaline Phosphatase 108 H Lactate Dehydrogenase Troponin I 0.01 B-Natriuretic Peptide Total Protein 6.9 Albumin 3.2 Globulin 3.7 Albumin/Globulin Ratio 0.9 L Cortisol Urine Color Urine Appearance Urine pH Ur Specific [place] Urine Protein Urine Ketones Urine Blood Urine Nitrate Urine Bilirubin Urine Urobilinogen Ur Leukocyte Esterase Urine WBC (Auto) Urine RBC (Auto) Amorphous Crystals Urine Bacteria Hyaline Casts Granular Casts Urine Glucose Influenza A (Rapid) Influenza B (Rapid) 02/15/18 02/15/18 02/15/18 00:19 03:11 03:11 WBC RBC Hgb Hct MCV MCH MCHC RDW Plt Count MPV Neut % (Auto) Lymph % (Auto) [place] % (Auto) Eos % (Auto) Baso % (Auto) Absolute Neuts (auto) Absolute Lymphs (auto) Absolute Monos (auto) Absolute Eos (auto) Absolute Basos (auto) Absolute Nucleated RBC Immature Gran % Neutrophils % Band Neutrophils % Lymphocytes % Metamyelocytes % Myelocytes % Nucleated RBC % Abs Neuts (Manual) Abs Lymphs (Manual) Toxic Granulation Normal RBC Morphology INR (Anticoag Therapy) 1.19 H APTT 33.7 D-Dimer, Quantitative > 1050 H VBG pH VBG pCO2 VBG pO2 VBG HCO3 VBG O2 Saturation VBG Base Excess Sodium Potassium Chloride Carbon Dioxide Anion Gap BUN 43 H Creatinine 0.95 Est GFR ( Amer) 70.4 Est GFR (Non-Af Amer) 58.2 BUN/Creatinine Ratio Glucose Lactic Acid Calcium Phosphorus Magnesium Total Bilirubin AST ALT Alkaline Phosphatase Lactate Dehydrogenase Troponin I B-Natriuretic Peptide 273 H Total Protein Albumin Globulin Albumin/Globulin Ratio Cortisol Urine Color Urine Appearance Urine pH Ur Specific [place] Urine Protein Urine Ketones Urine Blood Urine Nitrate Urine Bilirubin Urine Urobilinogen Ur Leukocyte Esterase Urine WBC (Auto) Urine RBC (Auto) Amorphous Crystals Urine Bacteria Hyaline Casts Granular Casts Urine Glucose Influenza A (Rapid) Influenza B (Rapid) 02/15/18 02/15/18 02/15/18 03:11 03:33 03:58 WBC RBC Hgb Hct MCV MCH MCHC RDW Plt Count MPV Neut % (Auto) Lymph % (Auto) [place] % (Auto) Eos % (Auto) Baso % (Auto) Absolute Neuts (auto) Absolute Lymphs (auto) Absolute Monos (auto) Absolute Eos (auto) Absolute Basos (auto) Absolute Nucleated RBC Immature Gran % Neutrophils % Band Neutrophils % Lymphocytes % Metamyelocytes % Myelocytes % Nucleated RBC % Abs Neuts (Manual) Abs Lymphs (Manual) Toxic Granulation Normal RBC Morphology INR (Anticoag Therapy) APTT D-Dimer, Quantitative VBG pH 7.20 L VBG pCO2 105 H VBG pO2 46 H VBG HCO3 32.5 H VBG O2 Saturation 81.0 H VBG Base Excess 10.2 H Sodium Potassium Chloride Carbon Dioxide Anion Gap BUN Creatinine Est GFR ( Amer) Est GFR (Non-Af Amer) BUN/Creatinine Ratio Glucose Lactic Acid 3.9 H* Calcium Phosphorus Magnesium Total Bilirubin AST ALT Alkaline Phosphatase Lactate Dehydrogenase Troponin I B-Natriuretic Peptide Total Protein Albumin Globulin Albumin/Globulin Ratio Cortisol Urine Color [place] Urine Appearance Cloudy Urine pH 5.0 Ur Specific [place] 1.018 Urine Protein 1+(30 mg/dl) A Urine Ketones Negative Urine Blood Negative Urine Nitrate Negative Urine Bilirubin 1+ A Urine Urobilinogen Positive A Ur Leukocyte Esterase Negative Urine WBC (Auto) Trace(0-5/hpf) Urine RBC (Auto) Trace(0-2/hpf) Amorphous Crystals Present A Urine Bacteria Absent Hyaline Casts Present A Granular Casts Present A Urine Glucose Negative Influenza A (Rapid) Influenza B (Rapid) 02/15/18 02/15/18 02/15/18 04:19 06:45 06:45 WBC RBC Hgb Hct MCV MCH MCHC RDW Plt Count MPV Neut % (Auto) Lymph % (Auto) [place] % (Auto) Eos % (Auto) Baso % (Auto) Absolute Neuts (auto) Absolute Lymphs (auto) Absolute Monos (auto) Absolute Eos (auto) Absolute Basos (auto) Absolute Nucleated RBC Immature Gran % Neutrophils % Band Neutrophils % Lymphocytes % Metamyelocytes % Myelocytes % Nucleated RBC % Abs Neuts (Manual) Abs Lymphs (Manual) Toxic Granulation Normal RBC Morphology INR (Anticoag Therapy) APTT D-Dimer, Quantitative VBG pH VBG pCO2 VBG pO2 VBG HCO3 VBG O2 Saturation VBG Base Excess Sodium 136 Potassium 4.4 Chloride 99 L Carbon Dioxide 36 H Anion Gap 1 L BUN 38 H Creatinine 0.72 Est GFR ( Amer) 96.9 Est GFR (Non-Af Amer) 80.1 BUN/Creatinine Ratio 52.8 H Glucose 131 H Lactic Acid 1.6 Calcium 8.1 L Phosphorus 2.2 L Magnesium 1.6 L Total Bilirubin AST ALT Alkaline Phosphatase Lactate Dehydrogenase 191 Troponin I B-Natriuretic Peptide Total Protein Albumin 2.3 L Globulin Albumin/Globulin Ratio Cortisol 46.53 Urine Color Urine Appearance Urine pH Ur Specific [place] Urine Protein Urine Ketones Urine Blood Urine Nitrate Urine Bilirubin Urine Urobilinogen Ur Leukocyte Esterase Urine WBC (Auto) Urine RBC (Auto) Amorphous Crystals Urine Bacteria Hyaline Casts Granular Casts Urine Glucose Influenza A (Rapid) Negative Influenza B (Rapid) Negative Studies: CXR 02/15 IMPRESSION: STABLE RIGHT LUNG CONSOLIDATION CXR 02/15 IMPRESSION: Right lung consolidation most pronounced along the mid and lower lung field. Impression: 73F with depression, hld, severe copd presents with respiratory failure 2/2 pneumococcal pna and copd exacerbation Plan: Neuro - depression - c/w zoloft CV - hld - c/w asa/statin - bp borderline - will consider TLC and pressors, however, patient requesting limited interventions - previous TTE with RVSP 64 Pulm - acute on chronic respiratory failure - 2/2 pna and copd - c/w bipap and wean as tolerated - duoneb q4h standing and prn - solumedrol 40q8 - chest pt - ct chest ordered by admitting team and is pending ID - severe sepsis - 2/2 pneumococcal pna - lactate now normal - penicillin allergic but tolerating cefepime - c/w vanc/cefepime/flagyl - f/u cultures - iv hydration gi - npo for now - diet if able to come off bipap renal - monitor bmp - monitor lytes heme - monitor cbc endo - cortisol 43 lines - piv Critical Care Time: 60 mins
[2018-02-15] MEDS: methylPREDNISolone SOD 40 MG* 1 ML VIAL IV SCH ×2 (09:42→18:15)
[2018-02-15] MEDS: Aspirin EC TAB* 81 MG TAB.EC PO SCH (14:14)
[2018-02-16] MEDS: methylPREDNISolone SOD 40 MG* 1 ML VIAL IV SCH ×2 (02:04→08:55)
[2018-02-16] MEDS: Cefepime 2 GM in Dextrose(*) 2 GM/50 ML BAG IV SCH (02:08)
[2018-02-16] MEDS: Azithromycin IV(*) 500 MG in NS 0.9% 250 ML* 250 ML IVPB SCH (03:23)
[2018-02-16] MEDS: Albuterol/Ipratropium NEB.SOL* Albuterol 2.5 MG/Ipratropium 0.5 MG 3 ML INH SCH ×3 (03:56→11:22)
[2018-02-16] MEDS: Morphine VIAL* 4 MG/ML VIAL (1 ml vial) IV PRN ×3 (04:22→13:16)
[2018-02-16 05:36] LABS: Hematocrit 31 % (35-47); Hemoglobin 9.4 g/dl (12.0-16.0); Mean Corpuscular HGB Conc 31 g/dl (31-36); Mean Corpuscular Hemoglobin 31 pg (27-31); Mean Corpuscular Volume 99 fL (80-97); Mean Platelet Volume 8.1 fL (7.4-10.4); Platelet Count 178 10^3/ul (150-450); Red Blood Count 3.07 10^6/ul (4.00-5.40); Red Cell Distribution Width 15 % (10.5-15); White Blood Count 20.1 10^3/ul (3.5-10.8)
[2018-02-16 05:53] LABS: EGFR Non-African American 54.8 (>60)
[2018-02-16 05:58] LABS: ABS Neutrophils 19.7 10^3/ul (1.5-7.7)
[2018-02-16] MEDS ORDERED: Vancomycin(*) 750 MG in NS 0.9% 250 ML* 250 ML IVPB SCH ×2 (06:00→18:00)
[2018-02-16] MEDS ORDERED: NS 0.9% 500 ML* 500 ML IV ONE (06:13)
[2018-02-16] MEDS: Heparin VIAL(*) 5000 UNITS/ML VIAL (FIVE THOUSAND) SUBCUT SCH (06:54)
[2018-02-16] MEDS: Mometasone/Formoter 200/5 MDI INH SCH (07:31)
[2018-02-16] MEDS: Aspirin EC TAB* 81 MG TAB.EC PO SCH ×2 (08:55→09:02)
[2018-02-16] MEDS ORDERED: Albuterol 2.5 MG/3 ML NEB.SOL* (0.083%) INH SCH (13:00)
--- NOTE | 2018-02-16 13:08 | CONSULT ---
Palliative / Hospice Consult Ordering Provider: Tej Rivera - PCP Azul De Leon Referal Reason: Discussion of care options - Subjective Code Status: DNR Advance Directives Location: With Family KATELYN Part A Completed: Yes Date: 02/16/18 - discussed with HCP Angela Bhandari BILLIE Part E Completed:: Yes Date: 02/16/18 - Discussed with HCP Angela Bhandari - History or Present Illness History or Present Illness: 72 yo female with O2 dependent COPD presented to ER with cough and SOB. Pt had not been eating, incontinent and laying in bed more. She was just discharged from the hospital 01/20/18 after an episode of pneumonia. Her other medical problems include depression, pneumonia, smoker quit 3 yrs ago, hyperlipidemia, h /o CVA on ASA. She is growing strep pneumonia in her urine, elevated wbc 23, albumin in 2.3 EGFR 80, echo showed EF 60-65% mild LVH, RV mildly dilated, CXR showed large R side consolidation, CT can showed gallstomes, hiatal hernia & L lobe nodule. EKG SVT. As per last admission pt was DNR/DNI but opted for a BIPAP trial this time and currently is in the ICU on vapor therm. All history obtained from chart, niece Angela Bhandari and nursing staff. Nursing reports she has poor po intake and chokes on fluids when she does drink. Lab Values: Abnormal Lab Results 02/16/18 02/16/18 05:20 05:20 WBC 20.1 H RBC 3.07 L Hgb 9.4 L Hct 31 L MCV 99 H MCH 31 MCHC 31 RDW 15 Plt Count 178 MPV 8.1 Immature Gran % 10 H Neutrophils % 88 Band Neutrophils % 8 Lymphocytes % 2 Myelocytes % 2 H Abs Neuts (Manual) 19.7 H Abs Lymphs (Manual) 0.4 L Toxic Granulation 1+ Normal RBC Morphology Normal Sodium 136 Potassium 4.9 Chloride 100 L Carbon Dioxide 37 H BUN 47 H Creatinine 1.00 H Est GFR ( Amer) 66.3 Est GFR (Non-Af Amer) 54.8 BUN/Creatinine Ratio 47.0 H Glucose 133 H Calcium 8.7 Magnesium 2.6 Laboratory Last Values WBC 20.1 10^3/ul (3.5-10.8) H 02/16/18 05:20 RBC 3.07 10^6/ul (4.00-5.40) L 02/16/18 05:20 Hgb 9.4 g/dl (12.0-16.0) L 02/16/18 05:20 Hct 31 % (35-47) L 02/16/18 05:20 MCV 99 fL (80-97) H 02/16/18 05:20 MCH 31 pg (27-31) 02/16/18 05:20 MCHC 31 g/dl (31-36) 02/16/18 05:20 RDW 15 % (10.5-15) 02/16/18 05:20 Plt Count 178 10^3/ul (150-450) 02/16/18 05:20 MPV 8.1 fL (7.4-10.4) 02/16/18 05:20 Neut % (Auto) Not Reportable 02/15/18 00:19 Lymph % (Auto) Not Reportable 02/15/18 00:19 [place] % (Auto) Not Reportable 02/15/18 00:19 Eos % (Auto) Not Reportable 02/15/18 00:19 Baso % (Auto) Not Reportable 02/15/18 00:19 Absolute Neuts (auto) 21.8 10^3/ul (1.5-7.7) H 02/15/18 00:19 Absolute Lymphs (auto) 0.4 10^3/ul (1.0-4.8) L 02/15/18 00:19 Absolute Monos (auto) 0.9 10^3/ul (0-0.8) H 02/15/18 00:19 Absolute Eos (auto) 0 10^3/ul (0-0.6) 02/15/18 00:19 Absolute Basos (auto) 0.1 10^3/ul (0-0.2) 02/15/18 00:19 Absolute Nucleated RBC 0 10^3/ul 02/15/18 00:19 Immature Gran % 10 % (0-9) H 02/16/18 05:20 Neutrophils % 88 % 02/16/18 05:20 Band Neutrophils % 8 % (0-8) 02/16/18 05:20 Lymphocytes % 2 % 02/16/18 05:20 Metamyelocytes % 3 % (0-2) H 02/15/18 00:19 Myelocytes % 2 % (0-1) H 02/16/18 05:20 Nucleated RBC % Not Reportable 02/15/18 00:19 Abs Neuts (Manual) 19.7 10^3/ul (1.5-7.7) H 02/16/18 05:20 Abs Lymphs (Manual) 0.4 10^3/ul (1.0-4.8) L 02/16/18 05:20 Toxic Granulation 1+ 02/16/18 05:20 Normal RBC Morphology Normal (Normal) 02/16/18 05:20 INR (Anticoag Therapy) 1.19 (0.77-1.02) H 02/15/18 03:11 APTT 33.7 seconds (26.0-36.3) 02/15/18 03:11 D-Dimer, Quantitative > 1050 ng/mL (Less Than 230) H 02/15/18 03:11 VBG pH 7.20 (7.33-7.43) L 02/15/18 03:58 VBG pCO2 105 mmHg (41-51) H 02/15/18 03:58 VBG pO2 46 mmHg (35-45) H 02/15/18 03:58 VBG HCO3 32.5 mmol/L (24-28) H 02/15/18 03:58 VBG O2 Saturation 81.0 % (70-80) H 02/15/18 03:58 VBG Base Excess 10.2 (0-4) H 02/15/18 03:58 Sodium 136 mmol/L (135-145) 02/16/18 05:20 Potassium 4.9 mmol/L (3.5-5.0) 02/16/18 05:20 Chloride 100 mmol/L (101-111) L 02/16/18 05:20 Carbon Dioxide 37 mmol/L (22-32) H 02/16/18 05:20 Anion Gap 1 mmol/L (2-11) L 02/15/18 06:45 BUN 47 mg/dL (6-24) H 02/16/18 05:20 Creatinine 1.00 mg/dL (0.51-0.95) H 02/16/18 05:20 Est GFR ( Amer) 66.3 (>60) 02/16/18 05:20 Est GFR (Non-Af Amer) 54.8 (>60) 02/16/18 05:20 BUN/Creatinine Ratio 47.0 (8-20) H 02/16/18 05:20 Glucose 133 mg/dL (70-100) H 02/16/18 05:20 Lactic Acid 1.6 mmol/L (0.5-2.0) 02/15/18 06:45 Calcium 8.7 mg/dL (8.6-10.3) 02/16/18 05:20 Phosphorus 2.2 mg/dL (2.5-5.0) L 02/15/18 06:45 Magnesium 2.6 mg/dL (1.9-2.7) 02/16/18 05:20 Total Bilirubin 0.80 mg/dL (0.2-1.0) 02/15/18 00:19 AST 15 U/L (13-39) 02/15/18 00:19 ALT 10 U/L (7-52) 02/15/18 00:19 Alkaline Phosphatase 108 U/L (34-104) H 02/15/18 00:19 Lactate Dehydrogenase 191 U/L (140-271) 02/15/18 06:45 Troponin I 0.01 ng/mL (<0.04) 02/15/18 00:19 B-Natriuretic Peptide 273 pg/mL (<=100) H 02/15/18 00:19 Total Protein 6.9 g/dL (6.4-8.9) 02/15/18 00:19 Albumin 2.3 g/dL (3.2-5.2) L 02/15/18 06:45 Globulin 3.7 g/dL (2-4) 02/15/18 00:19 Albumin/Globulin Ratio 0.9 (1-3) L 02/15/18 00:19 Cortisol 46.53 mcg/dL 02/15/18 06:45 Urine Color [place] 02/15/18 03:33 Urine Appearance Cloudy 02/15/18 03:33 Urine pH 5.0 (5-9) 02/15/18 03:33 Ur Specific [place] 1.018 (1.010-1.030) 02/15/18 03:33 Urine Protein 1+(30 mg/dl) (Negative) A 02/15/18 03:33 Urine Ketones Negative (Negative) 02/15/18 03:33 Urine Blood Negative (Negative) 02/15/18 03:33 Urine Nitrate Negative (Negative) 02/15/18 03:33 Urine Bilirubin 1+ (Negative) A 02/15/18 03:33 Urine Urobilinogen Positive (Negative) A 02/15/18 03:33 Ur Leukocyte Esterase Negative (Negative) 02/15/18 03:33 Urine WBC (Auto) Trace(0-5/hpf) (Absent) 02/15/18 03:33 Urine RBC (Auto) Trace(0-2/hpf) (Absent) 02/15/18 03:33 Amorphous Crystals Present (Absent) A 02/15/18 03:33 Urine Bacteria Absent (Absent) 02/15/18 03:33 Hyaline Casts Present (Absent) A 02/15/18 03:33 Granular Casts Present (Absent) A 02/15/18 03:33 Urine Glucose Negative (Negative) 02/15/18 03:33 Influenza A (Rapid) Negative (Negative) 02/15/18 04:19 Influenza B (Rapid) Negative (Negative) 02/15/18 04:19 - Objective Active Medications: Acetaminophen (Tylenol Tab*) 650 mg PO Q4H PRN PRN Reason: FEVER/PAIN Albuterol (Ventolin 2.5 Mg/3 Ml Neb.[place]*) 2.5 mg INH Q2H PRN PRN Reason: SOB/WHEEZING Albuterol (Ventolin 2.5 Mg/3 Ml Neb.[place]*) 2.5 mg INH [id number] AWAKE [facility] Aspirin (Aspirin Ec Tab*) 81 mg PO DAILY [facility] Last Admin: 02/16/18 09:02 Dose: Not Given Heparin Sodium (Porcine) (Heparin Vial(*)) 5,000 units SUBCUT Q8HR [facility] Last Admin: 02/16/18 06:54 Dose: 5,000 units Cefepime HCl (Maxipime 2 Gm In Dextrose Duplex (*)) 2 gm in 50 mls @ 100 mls/ hr IV Q12H [facility] Last Admin: 02/16/18 02:08 Dose: 100 mls/hr Azithromycin 500 mg/ Sodium (Chloride) 250 mls @ 250 mls/hr IVPB Q24H [facility] Last Admin: 02/16/18 03:23 Dose: 250 mls/hr Vancomycin HCl 750 mg/ Sodium (Chloride) 250 mls @ 166.667 mls/hr IVPB Q12H [facility] ; Protocol Lorazepam (Ativan Inj*) 1 mg IV PUSH Q6H PRN PRN Reason: ANXIETY Methylprednisolone Sodium Succinate (Solu-Medrol 40 Mg) 40 mg IV Q8H [facility] Last Admin: 02/16/18 08:55 Dose: 40 mg Mometasone Furoate/Formoterol Fumar (Dulera 200/5 Mdi*) 2 puff INH BID [facility] Last Admin: 02/16/18 07:31 Dose: 2 puff Morphine Sulfate (Morphine Vial*) 2 mg IV Q2H PRN PRN Reason: PAIN Last Admin: 02/16/18 09:10 Dose: 2 mg Ondansetron HCl (Zofran Inj*) 4 mg IV Q6H PRN PRN Reason: NAUSEA Pharmacy Consult (Vancomycin Per Pharmacy*) 1 note FOLLOW UP .VANC PER PHARMACY [facility] Pharmacy Profile Note (Vancomycin Trough Check) 1 note FOLLOW UP 0530 ONE Stop: 02/17/18 05:31 Vital Signs: Vital Signs: Temp Pulse Resp BP Pulse Ox 97.9 F 105 25 105/52 95 02/16/18 12:01 02/16/18 12:01 02/16/18 12:01 02/16/18 12:00 02/16/18 12:01 Patient Weight: Weight 53.4 kg Intake and Output: Intake & Output 02/14/18 02/15/18 02/16/18 02/17/18 06:59 06:59 06:59 06:59 Intake Total 2390 1873.3 0 Output Total 140 600 105 Balance 2250 1273.3 -105 Weight 49.6 kg 53.4 kg Intake: IV Fluids 1750 1055.3 NS (0.9%) 1750 1055.3 IVPB 640 418 ABX - AZITHROMYCIN 260 ABX - AZTREONAM 60 ABX - CEFEPIME 60 ABX - VANCOMYCIN 260 NS (0.9%) 418 Oral 400 0 Output: Butts 140 600 105 ADLs: Meal Record Start: 02/15/18 02: 02 Freq: ,, Status: Active Protocol: Created 02/15/18 02:02 System (Rec: 02/15/18 02:02 System [id number]) Document 02/15/18 14:00 [id number] (Rec: 02/15/18 14:33 [id number] ICU-M28) Document 02/16/18 09:00 [id number] (Rec: 02/16/18 11:15 [id number] ICU-C12) Intake and Output Start: 02/15/18 00: 20 Freq: Status: Active Protocol: Created 02/15/18 00:20 System (Rec: 02/15/18 00:20 System [id number]) Intake and Output Start: 02/15/18 02: 02 Freq: Q1HR Status: Active Protocol: Created 02/15/18 02:02 System (Rec: 02/15/18 02:02 System [id number]) Document 02/15/18 03:00 [id number] (Rec: 02/15/18 04:01 [id number] ICU-M33) Document 02/15/18 04:00 [id number] (Rec: 02/15/18 04:14 [id number] ICU-M33) Document 02/15/18 05:00 [id number] (Rec: 02/15/18 05:22 [id number] ICU-C10) Document 02/15/18 06:00 [id number] (Rec: 02/15/18 07:18 [id number] ICU-C10) Document 02/15/18 07:00 [id number] (Rec: 02/15/18 07:18 [id number] ICU-C10) Document 02/15/18 08:00 [id number] (Rec: 02/15/18 08:29 [id number] ICU-C15) Document 02/15/18 08:00 [id number] (Rec: 02/15/18 09:11 [id number] ICU-C15) Document 02/15/18 09:47 [id number] (Rec: 02/15/18 09:47 [id number] ICU-M33) Document 02/15/18 14:00 [id number] (Rec: 02/15/18 14:55 [id number] ICU-C15) Document 02/15/18 18:00 [id number] (Rec: 02/15/18 18:19 [id number] ICU-M33) Document 02/15/18 23:36 [id number] (Rec: 02/15/18 23:36 [id number] ICU-C15) Document 02/16/18 00:00 [id number] (Rec: 02/16/18 03:25 [id number] ICU-M33) Document 02/16/18 01:00 [id number] (Rec: 02/16/18 03:25 [id number] ICU-M33) Document 02/16/18 02:00 [id number] (Rec: 02/16/18 03:25 [id number] ICU-M33) Document 02/16/18 03:00 [id number] (Rec: 02/16/18 03:25 [id number] ICU-M33) Document 02/16/18 04:00 [id number] (Rec: 02/16/18 06:09 [id number] ICU-C15) Document 02/16/18 05:00 [id number] (Rec: 02/16/18 06:09 [id number] ICU-C15) Document 02/16/18 06:00 [id number] (Rec: 02/16/18 06:09 [id number] ICU-C15) Document 02/16/18 08:00 [id number] (Rec: 02/16/18 08:07 [id number] ICU-C12) Document 02/16/18 09:00 [id number] (Rec: 02/16/18 11:15 [id number] ICU-C12) Document 02/16/18 11:00 [id number] (Rec: 02/16/18 11:16 [id number] ICU-C12) Document 02/16/18 12:00 [id number] (Rec: 02/16/18 13:00 [id number] ICU-C12) Head: Normal Eyes: No Scleral Icterus Neck: NL Appearance and Movements; NL JVP Cardiovascular: NL Sounds; No Murmurs; No JVD, No Edema Respiratory: Clear to Auscultation - poor respiratory effort Abdominal: NL Sounds; No Tenderness; No Distention Extremities: No Edema Neurological: - - Drowsy awakes to voice but not able to hold a conversation - Assessment Assessment: 72 yo female with COPD and pneumonia on vapor therm opting for comfort care - Plan Consult Plan (MU): Hospice Plan: Patient too drowsy to carry on a conversation but had long discussion with HCP Angela Bhandari at hospital about pt's wishes for care. Angela said her aunt would not want to be intubated or have CPR "when it's her time she just wants to go". MOLST form was updated to reflect patient's wishes. At this time they are taking her off vapor therm and will discharge her to the floor with comfort measures if she is able to breathe on her own. ICU staff thinks she may . Family is aware. Will follow along if she goes to the floor. Also discussed with niece options for care if she is discharged hospicare, [facility] or SNF. Angela Bhandari # [phone]. - Time On Unit Date of Evaluation: 02/16/18 Hospice Consult Time in: 12:00 Hospice Consult Time Out: 01:30 Hospice Consult Time Total: -463 > 50% of Time Spend In Counseling or Coordinating Care: Yes
[2018-02-16] MEDS ORDERED: Morphine PCA ADULT* 5 MG/ML 30 ML ONE (13:42)
[2018-02-16] MEDS ORDERED: LORazepam INJ* 2 MG/ML 1 ML VIAL IV PUSH ONE (14:00)
[2018-02-16] MEDS ORDERED: Morphine VIAL* 10 MG/ML 1 ML VIAL IV ONE (14:00)
[2018-02-16] MEDS ORDERED: LORazepam INJ* 2 MG/ML 1 ML VIAL IV PUSH PRN (14:01)
[2018-02-16 14:02] VITALS: BP 109/51
[2018-02-16] MEDS ORDERED: Morphine PCA 5 MG/ML * Titrate per Protocol PCA SCH (15:00)
--- NOTE | 2018-02-16 21:12 | DS ---
SUMMARY: DATE OF ADMISSION: 02/15/18 DATE OF : 02/16/18 ADMISSION DIAGNOSIS: Septic shock secondary to community-acquired pneumonia. HISTORY: This patient was a 72-year-old white female with a history of COPD ( on home oxygen), who was admitted from the emergency department last night with an infiltrate involving the right middle and right lower lobe and an elevated lactate level. The patient was given a diagnosis of community-acquired pneumonia with septic shock and admitted to the intensive care unit. The patient was also started on empiric antibiotic therapy with Zosyn, vancomycin, and azithromycin. Strep urinary antigen subsequently returned positive. Cultures of sputum and blood were sent with pending results. The patient was initially placed on BiPAP, but stated she did not want to be on any machines, and was then switched to high-flow nasal O2 (Vapotherm system). She was a DNR/ DNI per her request, and denied a feeding tube (was unable to swallow) - patient subsequently requested "comfort measures only" care, which was instituted i the afternoon of 02/16/2018. She was pronounced at 2:51 p.m. on 02/16/18, approximately 30 minutes after being placed on comfort measures care. Family was present at the bedside. A biomedical scientist was consulted and case was reviewed. Autopsy was denied. FINAL DIAGNOSES: 1. Septic shock. 2. Multilobar community-acquired pneumococcal pneumonia. 3. Severe chronic obstructive pulmonary disease. [id number]/CPS #: [id number] GENE
[2018-02-17] MEDS ORDERED: Vancomycin Trough Check NOTE FOLLOW UP ONE (05:30)
== END 2018-02-16 14:51 | disposition expired | DRG 871 ==
LOC: ED 00:06 → ICU 01:51
PROVIDERS: ADMIT Internal Medicine; ATTEND Internal Medicine Critical Care Medicine
PROC: 5A09457 Assistance with Respiratory Ventilation, 24-96 Consecutive Hours, Continuous Positive Airway Pressure (ICD-10-PCS; principal; 2018-02-15)
DX: A41.9 Sepsis, unspecified organism (principal); J18.9 Pneumonia, unspecified organism; J96.20 Acute and chronic respiratory failure, unspecified whether with hypoxia or hypercapnia; R65.21 Severe sepsis with septic shock; J90 Pleural effusion, not elsewhere classified; J44.1 Chronic obstructive pulmonary disease with (acute) exacerbation; J44.0 Chronic obstructive pulmonary disease with (acute) lower respiratory infection; Z99.81 Dependence on supplemental oxygen; I27.20 Pulmonary hypertension, unspecified; E78.5 Hyperlipidemia, unspecified; F32.9 Major depressive disorder, single episode, unspecified; Z66 Do not resuscitate; Z86.73 Personal history of transient ischemic attack (TIA), and cerebral infarction without residual deficits; Z79.82 Long term (current) use of aspirin; Z79.52 Long term (current) use of systemic steroids; Z79.899 Other long term (current) drug therapy; Z88.0 Allergy status to penicillin; Z80.0 Family history of malignant neoplasm of digestive organs; Z80.8 Family history of malignant neoplasm of other organs or systems; Z87.891 Personal history of nicotine dependence
CPT/HCPCS: 36415; 71045; 80048; 80053; 81003; 81015; 82040; 82533; 82565; 82803; 83605; 83615; 83735; 83880; 84100; 84484; 84520; 85025; 85379; 85610; 85730; 87040; 87086; 87641; 87899; 93005; 93970; 94640; 94660; 99285; A9270-GY; J0456; J0692; J1100; J1644; J2060; J2270; J2920; J2930; J3370; J3475; J7611